=== PATIENT | male | born 1955 | race Caucasian/White ===

== ENCOUNTER 2023-08-23 09:15 | Inpatient (IN) ==
[2023-08-23] MEDS ORDERED: Tetan/Diph/Pertus SYR(Tdap) 0.5 ML SYR(BOOSTRIX) use SYR contains LATEX IM ONE (09:59)
[2023-08-23] MEDS ORDERED: ceFAZolin 2 GM PREMIX 2 GM/50 ML BAG IV ONE (10:03)
[2023-08-23] MEDS ORDERED: NS 0.9% 1000 ml BAG 1,000 ML IV ONE (10:35)
[2023-08-23 10:49] LABS: ABS Eosinophils 0.1 10^3/uL (0.0-0.5); ABS Lymphocytes 1.8 10^3/uL (1.0-4.8); ABS Monocytes 0.8 10^3/uL (0.0-1.1); ABS Neutrophils 3.8 10^3/uL (1.5-7.6); ABS Nucleated RBC 0.02 10^3/ul; Activated Partial Thrombo Time 26.1 seconds (26.0-38.0); Eosinophil % 1.7 %; Hematocrit 37.1 % (38-53); Hemoglobin 12.9 g/dL (13.2-16.3); INR 1.04 (0.83-1.13); Lymphocyte % 26.7 %; Mean Corpuscular Hemoglobin 35.1 pg (27-33); Mean Corpuscular Hgb Conc 34.8 g/dL (31-36); Mean Corpuscular Volume 100.7 fL (80-97); Mean Platelet Volume 7.8 fL (7.5-11.2); Nucleated Red Blood Cells % 0.3 %/100WBC (0.0-0.8); Platelet Count 316 10^3/uL (150-450); Red Blood Count 3.68 10^6/uL (4.06-5.63); Red Cell Distribution Width 16.7 % (12-17); White Blood Count 6.6 10^3/uL (3.6-10.2)
[2023-08-23 10:54] LABS: Albumin 4.4 g/dL (3.2-5.2); Albumin/Globulin Ratio 1.7 (1-3); Calcium 9.1 mg/dL (8.6-10.3); Creatinine, Serum 0.92 mg/dL (0.67-1.17); Globulin 2.6 g/dL (2-4); Potassium 3.9 mmol/L (3.5-5.0); Total Bilirubin 0.9 mg/dL (0.2-1.0)
[2023-08-23] MEDS ORDERED: Ondansetron 4 mg VIAL 2 MG/ML 2 ml VIAL IV ONE (11:02)
[2023-08-23] MEDS ORDERED: Morphine 4 MG/ML VIAL (1 ml) IV ONE ×2 (11:02→13:09)
[2023-08-23] MEDS ORDERED: Propofol 10 mg/ml 100 ML BTL 1,000 MG/100 ML BTL ONE (16:23)
[2023-08-23] MEDS ORDERED: Dexamethasone IV 4 MG/ML VIAL 1 ml VIAL ONE (16:26)
[2023-08-23] MEDS ORDERED: Lidocaine 2% PF 5 ML VIAL ONE (16:26)
[2023-08-23] MEDS ORDERED: Rocuronium 50 mg VIAL 10 mg/ml 5 ml VIAL (50 mg) ONE ×2 (16:26→18:31)
[2023-08-23] MEDS ORDERED: ceFAZolin 2 GM PREMIX 2 GM/50 ML BAG ONE (17:24)
[2023-08-23] MEDS ORDERED: HYDROmorphone 0.5 MG/0.5 ML SYRINGE ONE (18:15)
[2023-08-23] MEDS ORDERED: Ondansetron 4 mg VIAL 2 MG/ML 2 ml VIAL ONE (18:32)
[2023-08-23] MEDS ORDERED: Naloxone 0.4 mg VIAL 0.4 mg/ml 1 ml VIAL IV PRN (18:39)
[2023-08-23] MEDS ORDERED: HYDROmorphone 1 MG/1 ML SYRINGE IV PRN (18:39)
[2023-08-23] MEDS ORDERED: Acetaminophen IV 1 GM/100ML 1,000 MG/100 ML BAG IV PRN (18:39)
[2023-08-23] MEDS ORDERED: fentaNYL 100 mcg/2 ml 50 MCG/ML VIAL IV PRN (18:39)
[2023-08-23] MEDS ORDERED: Ondansetron 4 mg VIAL 2 MG/ML 2 ml VIAL IV PRN ×2 (18:39→20:52)
[2023-08-23] MEDS ORDERED: Propofol 10 MG/ML 20 ML BTL ONE (18:40)
[2023-08-23] MEDS ORDERED: Vancomycin 1,000 MG VIAL ONE (19:31)
[2023-08-23] MEDS ORDERED: Lactulose 30 ml UDC PO PRN (20:52)
[2023-08-23] MEDS ORDERED: Magnesium Hydroxide LIQ 30 ML UDC PO PRN (20:52)
[2023-08-23] MEDS ORDERED: Ondansetron ODT 4 mg TAB 4 MG TAB PO PRN (20:52)
[2023-08-23] MEDS: Lactated Ringers 1000 ml BAG 1,000 ML IV SCH (22:36)
[2023-08-23] MEDS: Magnesium Hydroxide LIQ 30 ML UDC PO SCH (22:55)
[2023-08-23] MEDS: ceFAZolin 1 GM ADVAN 1 GM in NS 0.9% 50 ML 50 ML IVPB SCH (23:50)
[2023-08-24] MEDS: ceFAZolin 1 GM ADVAN 1 GM in NS 0.9% 50 ML 50 ML IVPB SCH ×3 (06:20→23:01)
[2023-08-24 07:25] LABS: Calcium 8.2 mg/dL (8.6-10.3); Creatinine, Serum 0.94 mg/dL (0.67-1.17); Potassium 4.4 mmol/L (3.5-5.0); eGFR CKD-EPI 87.8 (>60)
[2023-08-24] MEDS ORDERED: Influenza vaccine *QUAD* *2023-24* 0.5 ML SYRINGE IM ONE (09:00)
[2023-08-24] MEDS: Magnesium Hydroxide LIQ 30 ML UDC PO SCH ×2 (09:14→20:21)
[2023-08-24] MEDS: Vitamin THERAPEUTIC TAB PO SCH (09:15)
[2023-08-24] MEDS: Enoxaparin 40 MG/0.4 ML SYR SUBCUT SCH (09:22)
[2023-08-24] MEDS: Lactated Ringers 1000 ml BAG 1,000 ML IV SCH (23:30)
[2023-08-25] MEDS: ceFAZolin 1 GM ADVAN 1 GM in NS 0.9% 50 ML 50 ML IVPB SCH ×3 (06:07→22:59)
[2023-08-25] MEDS: Enoxaparin 40 MG/0.4 ML SYR SUBCUT SCH (08:45)
[2023-08-25] MEDS: Magnesium Hydroxide LIQ 30 ML UDC PO SCH (08:45)
[2023-08-25] MEDS: Vitamin THERAPEUTIC TAB PO SCH (08:45)
[2023-08-25] MEDS ORDERED: Influenza vaccine *QUAD* *2023-24* 0.5 ML SYRINGE IM ONE (09:00)
[2023-08-25] MEDS: Lactated Ringers 1000 ml BAG 1,000 ML IV SCH (14:29)
[2023-08-25] MEDS ORDERED: ceFAZolin 2 GM in NS PREMIX 2 GM/100 ML BAG IVPB ONE (15:41)
[2023-08-26] MEDS: ceFAZolin 1 GM ADVAN 1 GM in NS 0.9% 50 ML 50 ML IVPB SCH (06:19)
[2023-08-26] MEDS: Magnesium Hydroxide LIQ 30 ML UDC PO SCH ×2 (08:39→09:33)
[2023-08-26] MEDS: Vitamin THERAPEUTIC TAB PO SCH ×2 (08:39→09:34)
[2023-08-26] MEDS ORDERED: Influenza vaccine *QUAD* *2023-24* 0.5 ML SYRINGE IM ONE (09:00)
[2023-08-26 10:12] VITALS: BP 149/80
== END 2023-08-26 12:05 | disposition home or self-care (01) | DRG 511 ==
LOC: ED 09:15 → OR 15:31 → SSU 18:11
PROVIDERS: ADMIT Orthopaedic Surgery Hand Surgery; ATTEND Orthopaedic Surgery Hand Surgery